=== PATIENT | male | born 1965 | race Caucasian/White ===

== ENCOUNTER 2016-10-13 12:16 | Inpatient (IN) | payer OTHER ==
[~2016-10-13] VITALS: Ht 182.9 cm; Wt 69.8 kg
[~2016-10-13 12:16] MED LIST: AMLODIPINE BES2.5 MG PO; ASPIRIN EC325 MG PO; CHLORDIAZEPOXID25 MG PO; COLACE100 MG PO; FOLIC ACID1 MG PO; KAOPECTATE 88 M88 M1 PO; LIDOCAINE700 MG TD; LISINOPRIL40 MG PO; NORCO 5/3251 TABLET PO; NORVASC5 MG PO; OXYCODONE-APAP1 EACH PO; PANTOPRAZOLE SO40 MG PO; PROCTOFOAM-HC10 GM PR; THIAMINE HCL100 MG PO; XARELTO1 EACH PO; XARELTO20 MG PO; ZESTRIL40 MG PO; ZESTRIL5 MG PO
[2016-10-13 14:47] LABS: HEMATOCRIT 52.7 % (38.0-50.0); MCH 33.7 PG (29.0-34.0); MCHC 33.2 G/DL (30.0-36.0); MCV 101.3 FL (86-99); MEAN PLAT.VOLUME 9.4 uM^3 (9.0-12.4); PLATELET COUNT 231 K/uL (156-360); RBC DIS.WIDTH-CV 13.2 % (11.8-14.6); RBC DIS.WIDTH-SD 49.6 % (39-53); WHITE BLOOD COUNT 16.3 K/uL (4.1-10.2)
[2016-10-13 14:56] LABS: CHLORIDE 102 mEq/L (99-109); POTASSIUM 4.7 mEq/L (3.7-5.4); SODIUM 141 mEq/L (136-147)
[2016-10-13 14:58] LABS: GLUCOSE 110 mg/dL (70-99)
[2016-10-13 14:59] LABS: ANION GAP 10 MEQ/L (2-14)
[2016-10-13 15:02] LABS: GFR ESTIMATE (CALCULATED) > 59 mL/min/
[2016-10-13 15:03] LABS: UREA NITROGEN (BUN) 7 mg/dL (9-23)
[2016-10-13 16:00] LABS: TROP-I INTERPRETATION NEGATIVE; TROPONIN-I < 0.01 ng/mL (0.0-0.30)
[2016-10-13 16:52] LABS: ADD MIUA? YES; BILIRUBIN NEGATIVE; BLOOD NEGATIVE; COLOR AMBER ((YELLOW)); GLUCOSE (STRIP) NEGATIVE; KETONES NEGATIVE; LEUKOCYTES NEGATIVE; NITRITE NEGATIVE; PROTEIN (STRIP) 30; UROBILINOGEN 0.2 MG/DL (0.2-1.0)
[2016-10-13] MEDS ORDERED: ZESTRIL10 MG PO (18:02)
[2016-10-13] MEDS ORDERED: VENTOLIN HFA18 GM IH (18:03)
[2016-10-13] MEDS ORDERED: PROTONIX40 MG PO (18:03)
[2016-10-13] MEDS ORDERED: AMBIEN CR12.5 MG PO (18:03)
[2016-10-13] MEDS ORDERED: PULMICORT FLEX90 MCG IH (18:03)
[2016-10-13 18:17] LABS: RED BLOOD CELLS 0-5 /HPF (0-5)
[2016-10-13 18:18] LABS: AMORPHOUS URATES CRYSTALS 4+; EPITHELIAL CELLS RARE /HPF; HYALINE CASTS RARE /LPF; MUCUS TRACE /LPF; UCUL ADDED? NO; WHITE BLOOD CELLS 0-5 /HPF (0-5)
[2016-10-13 22:27] LABS: TROP-I INTERPRETATION NEGATIVE; TROPONIN-I < 0.01 ng/mL (0.0-0.30)
[2016-10-13 22:30] VITALS: BP 120/73
[2016-10-14] VITALS (7 sets, daily range): BP systolic 121–140; BP diastolic 78–95
[2016-10-14 07:30] LABS: HEMATOCRIT 45.9 % (38.0-50.0); MCH 34.7 PG (29.0-34.0); MCV 102.2 FL (86-99); MEAN PLAT.VOLUME 9.7 uM^3 (9.0-12.4); PLATELET COUNT 198 K/uL (156-360); RBC DIS.WIDTH-CV 13.2 % (11.8-14.6); RBC DIS.WIDTH-SD 49.7 % (39-53); RED BLOOD COUNT 4.49 M/uL (4.00-5.50); WHITE BLOOD COUNT 19.5 K/uL (4.1-10.2)
[2016-10-14 07:56] LABS: ANION GAP 8 MEQ/L (2-14); CHLORIDE 102 MEQ/L (99-109); GFR ESTIMATE (CALCULATED) > 59 mL/min/; GLUCOSE 112 mg/dL (70-99); POTASSIUM 4.4 MEQ/L (3.7-5.4); SAMPLE HEMOLYSIS CHECK 0; SAMPLE ICTERIC CHECK 0; SAMPLE LIPEMIA CHECK 0; SODIUM 135 MEQ/L (136-147); UREA NITROGEN (BUN) 10 mg/dL (9-23)
[2016-10-14 12:05] LABS: TYPE OF FLUID PLEURAL
[2016-10-14 12:55] LABS: GLUCOSE 106 mg/dL (70-99); LACTATE DEHYDROGENASE 184 IU/L (20-246)
[2016-10-14 13:00] LABS: BODY FLUID LDH 116 IU/L; BODY FLUID PROTEIN 4.2 G/DL
[2016-10-14 13:21] LABS: BODY FLUID RBC'S 1000 /MM^3 (0-100); BODY FLUID WBC'S 875 /MM^3 (0-500)
[2016-10-14 13:23] LABS: BODY FLUID EOSINOPHILS 2 % (0-25); MONO RAW COUNT 94; MONONUCLEAR WBC'S 94 %; POLY RAW COUNT 4; POLYNUCLEAR WBC'S 4 % (0-25)
[2016-10-14 22:23] LABS: TROP-I INTERPRETATION NEGATIVE; TROPONIN-I < 0.01 ng/mL (0.0-0.30)
[2016-10-15 05:10] VITALS: BP 140/93
[2016-10-15 08:44] VITALS: BP 130/82
[2016-10-15 10:36] LABS: HEMATOCRIT 48.7 % (38.0-50.0); MCHC 34.3 G/DL (30.0-36.0); MCV 102.1 FL (86-99); MEAN PLAT.VOLUME 9.4 uM^3 (9.0-12.4); PLATELET COUNT 192 K/uL (156-360); RBC DIS.WIDTH-CV 13.7 % (11.8-14.6); RBC DIS.WIDTH-SD 51.1 % (39-53); RED BLOOD COUNT 4.77 M/uL (4.00-5.50); WHITE BLOOD COUNT 14.1 K/uL (4.1-10.2)
[2016-10-15 11:02] LABS: ALKALINE PHOSPHATASE 229 IU/L (3-129); ANION GAP 10 MEQ/L (2-14); CHLORIDE 106 MEQ/L (99-109); GFR ESTIMATE (CALCULATED) > 59 mL/min/; GLUCOSE 103 mg/dL (70-99); POTASSIUM 4.1 MEQ/L (3.7-5.4); SAMPLE HEMOLYSIS CHECK 0; SAMPLE ICTERIC CHECK 0; SAMPLE LIPEMIA CHECK 0; SODIUM 137 MEQ/L (136-147); TOTAL BILIRUBIN 0.8 MG/DL (0.0-1.0); UREA NITROGEN (BUN) 9 mg/dL (9-23)
[2016-10-15 11:41] VITALS: BP 130/75
[2016-10-15 16:40] VITALS: BP 134/76
[2016-10-15 22:00] VITALS: BP 152/97
[2016-10-16 00:37] VITALS: BP 120/77
[2016-10-16 06:09] VITALS: BP 133/83
[2016-10-16 06:28] LABS: HEMATOCRIT 46.3 % (38.0-50.0); MCH 35.4 PG (29.0-34.0); MCV 101.3 FL (86-99); MEAN PLAT.VOLUME 9.3 uM^3 (9.0-12.4); PLATELET COUNT 190 K/uL (156-360); RBC DIS.WIDTH-CV 13.5 % (11.8-14.6); RBC DIS.WIDTH-SD 49.7 % (39-53); RED BLOOD COUNT 4.57 M/uL (4.00-5.50); WHITE BLOOD COUNT 13.9 K/uL (4.1-10.2)
[2016-10-16 06:53] LABS: ANION GAP 9 MEQ/L (2-14); CHLORIDE 105 MEQ/L (99-109); GFR ESTIMATE (CALCULATED) > 59 mL/min/; GLUCOSE 89 mg/dL (70-99); POTASSIUM 3.8 MEQ/L (3.7-5.4); SAMPLE HEMOLYSIS CHECK 0; SAMPLE ICTERIC CHECK 0; SAMPLE LIPEMIA CHECK 0; SODIUM 139 MEQ/L (136-147); UREA NITROGEN (BUN) 7 mg/dL (9-23)
[2016-10-16 09:05] VITALS: BP 151/95
[2016-10-16 16:00] VITALS: BP 139/90
[2016-10-16 19:42] VITALS: BP 146/86
[2016-10-16 23:10] VITALS: BP 126/84
[2016-10-16 23:23] LABS: BODY FLUID PH 7.7 (())
[2016-10-17 04:20] VITALS: BP 133/82
[2016-10-17 08:31] VITALS: BP 151/95
[2016-10-17 11:55] VITALS: BP 129/87
[2016-10-17 15:49] VITALS: BP 153/95
[2016-10-17 19:33] VITALS: BP 124/74
[2016-10-17 23:22] VITALS: BP 148/85
[2016-10-18 03:33] VITALS: BP 153/83
[2016-10-18 08:12] VITALS: BP 130/83
[2016-10-18] MEDS ORDERED: IBUPROFEN800 MG PO (12:37)
[2016-10-18] MEDS ORDERED: PERCOCET 10/1 TABLET PO (12:39)
[2016-10-18] MEDS ORDERED: ADVAIR HFA120 INHALA IH (12:45)
[2016-10-18 16:25] VITALS: BP 137/84
[2016-10-18 19:08] VITALS: BP 148/83
[2016-10-18 22:07] VITALS: BP 140/94
[2016-10-19 03:10] VITALS: BP 130/83
[2016-10-19 08:38] VITALS: BP 131/79
[2016-10-19 11:17] VITALS: BP 137/90
[2016-10-19 16:31] VITALS: BP 130/75
[2016-10-19 19:15] VITALS: BP 136/86
[2016-10-19 23:39] VITALS: BP 122/91
[2016-10-20 04:05] VITALS: BP 123/76
[2016-10-20 05:51] VITALS: BP 129/85
[2016-10-20 07:48] VITALS: BP 103/60
[2016-10-20 10:43] LABS: HEMATOCRIT 46.5 % (38.0-50.0); MCH 33.3 PG (29.0-34.0); MCHC 32.3 G/DL (30.0-36.0); MCV 103.1 FL (86-99); RBC DIS.WIDTH-CV 13.2 % (11.8-14.6); RBC DIS.WIDTH-SD 50.2 % (39-53); RED BLOOD COUNT 4.51 M/uL (4.00-5.50); WHITE BLOOD COUNT 9.7 K/uL (4.1-10.2)
[2016-10-20 10:56] LABS: PLATELET COUNT 253 K/uL (156-360)
[2016-10-20 11:02] LABS: ANION GAP 11 MEQ/L (2-14); CHLORIDE 108 MEQ/L (99-109); GFR ESTIMATE (CALCULATED) > 59 mL/min/; GLUCOSE 81 mg/dL (70-99); POTASSIUM 4.3 MEQ/L (3.7-5.4); SAMPLE HEMOLYSIS CHECK 0; SAMPLE ICTERIC CHECK 0; SAMPLE LIPEMIA CHECK 0; SODIUM 144 MEQ/L (136-147); UREA NITROGEN (BUN) 6 mg/dL (9-23)
[2016-10-20 23:29] VITALS: BP 120/69
[2016-10-21 08:23] VITALS: BP 123/81
[2016-10-21 10:03] LABS: ANION GAP 8 MEQ/L (2-14); CHLORIDE 107 MEQ/L (99-109); GFR ESTIMATE (CALCULATED) > 59 mL/min/; POTASSIUM 4.2 MEQ/L (3.7-5.4); SAMPLE HEMOLYSIS CHECK 0; SAMPLE ICTERIC CHECK 0; SAMPLE LIPEMIA CHECK 0; SODIUM 141 MEQ/L (136-147); UREA NITROGEN (BUN) 7 mg/dL (9-23)
[2016-10-21 10:07] LABS: GLUCOSE 106 mg/dL (70-99)
[2016-10-21 16:23] VITALS: BP 143/86
[2016-10-21 23:59] VITALS: BP 130/86
[2016-10-22 04:16] LABS: METH RESISTANT S AUREUS PCR NEGATIVE (NEGATIVE)
[2016-10-22 04:19] LABS: PROBE CHECK PASS; SPECIMEN PROCESSING CONTROL PASS
[2016-10-22 07:43] VITALS: BP 130/74
[2016-10-22 08:25] LABS: INTERNAL CONTROL VALID? YES
[2016-10-22 09:32] LABS: MCH 34.5 PG (29.0-34.0); MCHC 34.2 G/DL (30.0-36.0); MCV 101.1 FL (86-99); PLATELET COUNT 256 K/uL (156-360); RBC DIS.WIDTH-CV 13.2 % (11.8-14.6); RBC DIS.WIDTH-SD 48.9 % (39-53); RED BLOOD COUNT 4.75 M/uL (4.00-5.50); WHITE BLOOD COUNT 11.7 K/uL (4.1-10.2)
[2016-10-22 09:57] LABS: ANION GAP 8 MEQ/L (2-14); CHLORIDE 102 MEQ/L (99-109); GFR ESTIMATE (CALCULATED) > 59 mL/min/; GLUCOSE 100 mg/dL (70-99); POTASSIUM 4.2 MEQ/L (3.7-5.4); SAMPLE HEMOLYSIS CHECK 0; SAMPLE ICTERIC CHECK 0; SAMPLE LIPEMIA CHECK 0; SODIUM 138 MEQ/L (136-147); UREA NITROGEN (BUN) 5 mg/dL (9-23)
[2016-10-22 16:00] VITALS: BP 124/74
[2016-10-22 23:53] VITALS: BP 130/65
[2016-10-23 07:54] VITALS: BP 134/89
[2016-10-23 09:33] LABS: HEMATOCRIT 47.2 % (38.0-50.0); MCH 33.3 PG (29.0-34.0); MCHC 33.3 G/DL (30.0-36.0); MCV 100.2 FL (86-99); MEAN PLAT.VOLUME 8.9 uM^3 (9.0-12.4); PLATELET COUNT 247 K/uL (156-360); RBC DIS.WIDTH-SD 48.3 % (39-53); RED BLOOD COUNT 4.71 M/uL (4.00-5.50); WHITE BLOOD COUNT 11.2 K/uL (4.1-10.2)
[2016-10-23 09:58] LABS: ANION GAP 9 MEQ/L (2-14); CHLORIDE 103 MEQ/L (99-109); GFR ESTIMATE (CALCULATED) > 59 mL/min/; GLUCOSE 98 mg/dL (70-99); SAMPLE HEMOLYSIS CHECK 0; SAMPLE ICTERIC CHECK 0; SAMPLE LIPEMIA CHECK 0; SODIUM 140 MEQ/L (136-147); UREA NITROGEN (BUN) 8 mg/dL (9-23)
[2016-10-23 15:40] VITALS: BP 145/91
[2016-10-24 00:18] VITALS: BP 109/68
[2016-10-24 08:02] VITALS: BP 130/75
[2016-10-24 18:41] LABS: TYPE OF FLUID PLEURAL
[2016-10-24 19:20] LABS: BODY FLUID LDH 187 IU/L; BODY FLUID PROTEIN 3.8 G/DL
[2016-10-24 19:26] LABS: BODY FLUID RBC'S 6000 /MM^3 (0-100); BODY FLUID WBC'S 1780 /MM^3 (0-500)
[2016-10-24 19:31] LABS: BODY FLUID EOSINOPHILS 5 % (0-25); MONO RAW COUNT 5; MONONUCLEAR WBC'S 5 %; POLY RAW COUNT 90; POLYNUCLEAR WBC'S 90 % (0-25)
[2016-10-24 19:34] LABS: BODY FL. SPEC. GRAV. 1.028
[2016-10-24 19:39] VITALS: BP 120/81
[2016-10-25 00:05] VITALS: BP 120/66
[2016-10-25 04:09] VITALS: BP 96/56
[2016-10-25 06:25] LABS: HEMATOCRIT 44.8 % (38.0-50.0); MCH 34.5 PG (29.0-34.0); MCHC 34.2 G/DL (30.0-36.0); MCV 101.1 FL (86-99); MEAN PLAT.VOLUME 9.2 uM^3 (9.0-12.4); PLATELET COUNT 259 K/uL (156-360); RBC DIS.WIDTH-CV 13.1 % (11.8-14.6); RBC DIS.WIDTH-SD 48.8 % (39-53); RED BLOOD COUNT 4.43 M/uL (4.00-5.50); WHITE BLOOD COUNT 19.2 K/uL (4.1-10.2)
[2016-10-25 06:49] LABS: ANION GAP 14 MEQ/L (2-14); CHLORIDE 105 MEQ/L (99-109); GFR ESTIMATE (CALCULATED) > 59 mL/min/; GLUCOSE 116 mg/dL (70-99); POTASSIUM 4.3 MEQ/L (3.7-5.4); SAMPLE HEMOLYSIS CHECK 0; SAMPLE ICTERIC CHECK 0; SAMPLE LIPEMIA CHECK 0; SODIUM 141 MEQ/L (136-147); UREA NITROGEN (BUN) 6 mg/dL (9-23)
[2016-10-25 20:00] VITALS: BP 138/82
[2016-10-26 00:55] VITALS: BP 118/76
[2016-10-26 04:38] VITALS: BP 133/80
[2016-10-26 08:20] VITALS: BP 127/73
[2016-10-26 16:20] VITALS: BP 132/82
[2016-10-26 19:55] VITALS: BP 138/95
[2016-10-27 04:44] VITALS: BP 126/86
[2016-10-27 07:56] VITALS: BP 134/80
[2016-10-27 11:36] VITALS: BP 129/68
[2016-10-27 16:05] VITALS: BP 124/75
[2016-10-27 20:03] VITALS: BP 140/89
[2016-10-28 00:16] VITALS: BP 128/82
[2016-10-28 09:06] VITALS: BP 128/75
[2016-10-28 15:57] VITALS: BP 125/81
[2016-10-28 19:53] VITALS: BP 128/69
[2016-10-29 00:13] VITALS: BP 128/96
[2016-10-29 05:22] VITALS: BP 127/73
[2016-10-29 08:42] VITALS: BP 142/83
[2016-10-29 12:20] VITALS: BP 149/84
[2016-10-29 20:00] VITALS: BP 115/67
[2016-10-29 23:30] VITALS: BP 108/66
[2016-10-30 03:59] VITALS: BP 16/78
[2016-10-30 08:17] VITALS: BP 112/64
[2016-10-30] MEDS ORDERED: DUONEB 2.5-0.5 M3 ML AEROSOL (10:00)
[2016-10-30] MEDS ORDERED: OXYCODONE-APAP1 EACH PO (10:00)
[2016-10-30] MEDS ORDERED: MORPHINE SULFAT15 M1 PO (10:00)
[2016-10-30] MEDS ORDERED: DIAZEPAM5 MG PO (10:00)
[2016-10-30] MEDS ORDERED: AUGMENTIN875 MG PO (10:02)
== END 2016-10-30 15:13 | disposition home or self-care (01) | DRG 163 ==
LOC: EME 12:16 → 4EAST 20:23 → EDOF 20:23 → 4EAST 21:53 → 3EAST 10-20 05:18
PROVIDERS: Emergency Medicine; Hospitalist; Internal Medicine; Internal Medicine Infectious Disease; Physician Assistant; Radiology Diagnostic Radiology; Thoracic Surgery (Cardiothoracic Vascular Surgery)
PROC: 0W993ZZ Drainage of Right Pleural Cavity, Percutaneous Approach (ICD-10-PCS; principal; 2016-10-14)
PROC: 0W9930Z Drainage of Right Pleural Cavity with Drainage Device, Percutaneous Approach (ICD-10-PCS; 2016-10-17)
PROC: 0W993ZZ Drainage of Right Pleural Cavity, Percutaneous Approach (ICD-10-PCS; 2016-10-23)
PROC: 0B5N4ZZ Destruction of Right Pleura, Percutaneous Endoscopic Approach (ICD-10-PCS; 2016-10-24)
PROC: 0BBN4ZX Excision of Right Pleura, Percutaneous Endoscopic Approach, Diagnostic (ICD-10-PCS; 2016-10-24)
DX: J44.0 Chronic obstructive pulmonary disease with (acute) lower respiratory infection (principal); J15.9 Unspecified bacterial pneumonia; J91.8 Pleural effusion in other conditions classified elsewhere; J93.9 Pneumothorax, unspecified; J98.11 Atelectasis; R09.02 Hypoxemia; I10 Essential (primary) hypertension; E11.9 Type 2 diabetes mellitus without complications; F10.10 Alcohol abuse, uncomplicated; K21.9 Gastro-esophageal reflux disease without esophagitis; K64.8 Other hemorrhoids; F17.200 Nicotine dependence, unspecified, uncomplicated; Y95 Nosocomial condition; Z86.711 Personal history of pulmonary embolism; Z86.718 Personal history of other venous thrombosis and embolism; Z79.4 Long term (current) use of insulin; Z87.442 Personal history of urinary calculi; Z80.1 Family history of malignant neoplasm of trachea, bronchus and lung
CPT/HCPCS: 32552; 32555; 32557; 71010; 71020; 71260; 71275; 76942; 80048; 80053; 80202; 81003; 82945; 82947 91; 83615; 83615 91; 83880; 83986 90; 84145 90; 84155; 84157; 84315; 84484; 85027; 86140; 87040; 87070; 87075; 87102; 87116; 87205; 87206; 87449; 87641; 88108; 88305; 89051; 93005; 94010; 94640; 94640 76; 94667; 94668; 94760; 94799; 99202; 99281; 99285; C1769; J0131; J0692; J1100; J1170; J1644; J1650; J1885; J2250; J2270; J2405; J2543; J2710; J3010; J3370; J7030; J7050; J7120; J7512; S0020